=== PATIENT | male | born 1990 | race Caucasian/White ===

== ENCOUNTER 2020-12-16 11:16 | Emergency (ER) | payer MEDICAID ==
[~2020-12-16] VITALS: Ht 172.7 cm; Wt 74.4 kg
[2020-12-16 11:49] VITALS: BP 117/70
[2020-12-16] MEDS ORDERED: CEFTRIAXONE 1,000 MG ONE (13:54)
[2020-12-16] MEDS ORDERED: LIDOCAINE-MPF 1%, 2ML ONE (13:54)
[2020-12-16] MEDS ORDERED: CEFTRIAXONE 1,000 MG IM ONE (14:00)
== END 2020-12-16 14:44 | disposition home or self-care (01) ==
LOC: ED 11:46
DX: R36.1 Hematospermia (principal); F17.200 Nicotine dependence, unspecified, uncomplicated
CPT/HCPCS: 87491; 87591; 96372; 99283; J0696